=== PATIENT | male | born 1975 | race African-American/Black ===

== ENCOUNTER 2018-06-26 02:51 | Inpatient (IN) ==
[2018-06-26] MEDS ORDERED: ceFAZolin 2 GM Premix Inj 2 GM/50 ML PIGGYBACK IV.SIG ONE (03:02)
[2018-06-26 03:22] LABS: Baso % (Auto) 0.5 % (0.0-2.0); Eos % (Auto) 0.5 % (0.0-4.0); Hematocrit 31.5 % (39.0-51.0); Hemoglobin 10.6 gm/dL (13.0-17.0); Lymph # (Auto) 1.2 th/mm3 (1.0-4.8); Lymph % (Auto) 21.3 % (9.0-44.0); Mean Corpuscular HGB Conc 33.6 % (32.0-36.0); Mean Corpuscular Hemoglobin 31.2 pg (27.0-34.0); Mean Corpuscular Volume 92.9 fL (80.0-100.0); Mean Platelet Volume 7.6 fL (7.0-11.0); Mono # (Auto) 0.7 th/mm3 (0.0-0.9); Mono % (Auto) 13.7 % (0.0-8.0); Neut # (Auto) 3.5 th/mm3 (1.8-7.7); Platelet Count 253 th/mm3 (150-450); Red Blood Count 3.39 mil/mm3 (4.50-5.90); Red Cell Distribution Width 16.7 % (11.6-17.2); White Blood Count 5.5 th/mm3 (4.0-11.0)
[2018-06-26 03:37] LABS: Activated Partial Thrombo Time 25.5 sec (23.4-31.7); INR 1.1 Ratio; Prothrombin Time 11.4 sec (9.8-11.6)
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
[2018-06-26] MEDS ORDERED: Morphine Inj 4 MG/ML Vial IV.PUSH ONE ×2 (03:53→05:27)
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
[2018-06-26] MEDS: Morphine Inj 4 MG/ML Vial ONE ×2 (04:04→04:16)
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
[2018-06-26] MEDS: Pantoprazole Inj 40 MG Vial IV.PUSH SCH (06:37)
[2018-06-26] MEDS: Sod Chloride 0.9% Inj 1,000 ML IV.CONT SCH ×2 (06:37→16:14)
[2018-06-26] MEDS: HYDROmorphone PF Inj 1 MG/ML Ampul IV.PUSH PRN ×6 (06:38→22:59)
[2018-06-26] MEDS ORDERED: ceFAZolin Inj 2,000 MG in Sodium Chlor 0.9% Inj 80 ML IV.SIG SCH (07:00)
[2018-06-26] MEDS: ceFAZolin 2 GM Premix Inj 2 GM/50 ML PIGGYBACK IV.SIG SCH ×2 (07:51→17:40)
[2018-06-26] MEDS: Multivitamin Inj 10 ML, Thiamine Inj 100 MG, Folic Acid Inj 1 MG in Sodium Chlor 0.9% I... IV.SIG SCH (07:56)
[2018-06-26] MEDS ORDERED: Digoxin 250 MCG Tablet PO ONE (18:45)
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
[2018-06-26] MEDS ORDERED: Digoxin 125 MCG Tablet PO ONE (22:30)
[2018-06-26] MEDS ORDERED: Metoprolol Tartrate 25 MG Tablet PO ONE (23:00)
[2018-06-27] MEDS: ceFAZolin 2 GM Premix Inj 2 GM/50 ML PIGGYBACK IV.SIG SCH ×3 (01:20→15:45)
[2018-06-27] MEDS: HYDROmorphone PF Inj 1 MG/ML Ampul IV.PUSH PRN ×7 (01:47→22:12)
[2018-06-27] MEDS: Sod Chloride 0.9% Inj 1,000 ML IV.CONT SCH ×2 (02:40→13:35)
[2018-06-27] MEDS ORDERED: Metoprolol Inj 5 MG/5 ML Vial IV.PUSH ONE (05:35)
[2018-06-27] MEDS ORDERED: Metoprolol Inj 5 MG/5 ML Vial IV.PUSH PRN (05:36)
[2018-06-27] MEDS: Pantoprazole Inj 40 MG Vial IV.PUSH SCH (06:37)
[2018-06-27 07:10] LABS: Hemoglobin 11.5 gm/dL (13.0-17.0); Mean Corpuscular Hemoglobin 30.9 pg (27.0-34.0); Mean Corpuscular Volume 93.7 fL (80.0-100.0); Platelet Count 247 th/mm3 (150-450); Red Blood Count 3.73 mil/mm3 (4.50-5.90); Red Cell Distribution Width 16.7 % (11.6-17.2); White Blood Count 5.3 th/mm3 (4.0-11.0)
[2018-06-27 07:30] LABS: Albumin 1.9 g/dL (3.4-5.0); Anion Gap 7 meq/L (5-15); Aspartate Aminotransferase 71 U/L (15-37); Blood Urea Nitrogen 9 mg/dL (7-18); Calcium 8.2 mg/dL (8.5-10.1); Carbon Dioxide 23.8 meq/L (21.0-32.0); Chloride 105 meq/L (98-107); Glomerular Filtration Rate Greater Than 89 mL/min (>89); Glucose,Random 74 mg/dL (74-106); Potassium 3.7 meq/L (3.5-5.1); Sodium 136 meq/L (136-145)
[2018-06-27 07:31] LABS: Alanine Aminotransferase 36 U/L (12-78)
[2018-06-27 07:33] LABS: Alkaline Phosphatase 147 U/L (45-117); Total Protein 8.5 g/dL (6.4-8.2)
[2018-06-27 08:04] LABS: Magnesium 1.9 mg/dL (1.5-2.5)
[2018-06-27] MEDS: Senna/Docusate Sodium 8.6/50 MG Tablet PO SCH ×2 (08:15→21:13)
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
[2018-06-27] MEDS ORDERED: Digoxin 250 MCG Tablet PO SCH (09:00)
[2018-06-27] MEDS: Digoxin 125 MCG Tablet PO SCH (09:14)
[2018-06-27] MEDS ORDERED: PEG 3350/E-Lyte Soln 4000 ML Bottle PO ONE (09:38)
[2018-06-27 09:40] LABS: Eosinophils 3 % (0-4); Lymphocytes 4 % (9-44); Monocytes 8 % (0-8)
[2018-06-27 09:41] LABS: Ovalocytes 1+; Platelet Estimate Normal (Normal); Platelet Morphology Normal (Normal)
[2018-06-27] MEDS ORDERED: Metoprolol Tartrate 25 MG Tablet PO ONE ×2 (10:14→14:30)
[2018-06-27] MEDS: Sodium Chloride 0.9% 2 ML Flush BID IV.FLUSH SCH ×2 (10:25→21:14)
--- NOTE | 2018-06-27 11:24 | OTSOAPIP ---
TIME SESSION COMPLETED: 11 AM SPOKE WITH RN DEEJAY SHE REQUESTED FOR OCCUPATIONAL THERAPY TO HOLD TODAY. Therapist: Sara Gallardo Signature on file
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
--- NOTE | 2018-06-27 17:48 | ECG ---
Date Performed: 06/27/2018 Time Performed: 07:52:11 PTAGE: 43 years EKG: SINUS TACHYCARDIA WITH FIRST DEGREE AV BLOCK POSSIBLE RIGHT VENTRICULAR CONDUCTION DELAY MO DERATE ST DEPRESSION ABNORMAL ECG NO PREVIOUS TRACING DOCTOR: Justin Arellano Interpretating Date/Time 06/27/2018 17:45:12
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
[2018-06-27] MEDS: Multivitamin Inj 10 ML, Thiamine Inj 100 MG, Folic Acid Inj 1 MG in Sodium Chlor 0.9% I... IV.SIG SCH (18:28)
--- NOTE | 2018-06-27 18:29 | ECHRPT ---
Indication: CHEST PAIN CONCLUSIONS Normal left ventricular size. Wall thickness is measured at the upper limits of normal. The left ventricular systolic function is severely reduced with an estimated ejection fraction in th e range of 30-35%. The left atrial size is mildly dilated. [id number] mitral valve regurgitation. The estimated pulmonary arterial pressure is 30 mmHg. There is trace tricuspid valve regurgitation. BP: / HR: Rhythm: MEASUREMENTS (Male / Female) Normal Values Technical Quality: 2D ECHO LV Diastolic Diameter PLAX 5.4 cm 4.2 - 5.9 / 3.9 - 5.3 cm LV Systolic Diameter PLAX 4.6 cm IVS Diastolic Thickness 1.1 cm 0.6 - 1.0 / 0.6 - 0.9 cm LVPW Diastolic Thickness 1.4 cm 0.6 - 1.0 / 0.6 - 0.9 cm LV Relative Wall Thickness 0.5 RV Internal Dim ED PLAX 3.2 cm LVOT Diameter 2.1 cm Aortic Root Diameter 2.6 cm LA Systolic Diameter LX 4.3 cm 3.0 - 4.0 / 2.7 - 3.8 cm LV Ejection Fraction MOD BP 21.7 % >= 55 % LV Ejection Fraction MOD 4C 22.9 % LV Ejection Fraction 4C AL 23.1 % LV Ejection Fraction MOD 2C 24.6 % LV Ejection Fraction 2C AL 28.1 % M-MODE Aortic Root Diameter MM 3.7 cm LA Systolic Diameter MM 4.2 cm LA Ao Ratio MM 1.1 AV Cusp Separation MM 2.1 cm DOPPLER AV Peak Velocity 117.0 cm/s AV Peak Gradient 5.5 mmHg LVOT Peak Velocity 75.5 cm/s LVOT Peak Gradient 2.3 mmHg AV Area Cont Eq pk 2.2 cm Mitral E Point Velocity 101.0 cm/s LV E' Lateral Velocity 22.3 cm/s Mitral E to LV E' Lateral Ratio 4.5 LV E' Septal Velocity 15.8 cm/s Mitral E to LV E' Septal Ratio 6.4 TR Peak Velocity 224.0 cm/s TR Peak Gradient 20.1 mmHg Right Atrial Pressure 10.0 mmHg Pulmonary Artery Systolic Pressu 30.1 mmHg Right Ventricular Systolic Press 30.1 mmHg PV Peak Velocity 75.0 cm/s PV Peak Gradient 2.3 mmHg FINDINGS LEFT VENTRICLE Normal left ventricular size. Wall thickness is measured at the upper limits of normal. The left ventricular systolic function is severely reduced with an estimated ejection fraction in th e range of 30-35%. RIGHT VENTRICLE Normal right ventricular size and systolic function. LEFT ATRIUM The left atrial size is mildly dilated. RIGHT ATRIUM The right atrial size is normal. ATRIAL SEPTUM Normal atrial septal thickness without atrial level shunting by limited color doppler interrogation. AORTA The aortic root and proximal ascending aorta are normal in size on limited imaging. MITRAL VALVE [id number] mitral valve regurgitation. AORTIC VALVE Trileaflet aortic valve. No aortic valve stenosis or regurgitation. TRICUSPID VALVE The estimated pulmonary arterial pressure is 30 mmHg. There is trace tricuspid valve regurgitation. PULMONARY VALVE No pulmonary valve regurgitation or stenosis. VESSELS The inferior vena cava is normal in size. PERICARDIUM No pericardial effusion. Jaden Molina MD, FACC, FSCAI (Electronically Signed) Final Date:27 June 2018 18:28
[2018-06-27] MEDS: Metoprolol Tartrate 50 MG Tablet PO SCH (21:13)
[2018-06-28] MEDS: ceFAZolin 2 GM Premix Inj 2 GM/50 ML PIGGYBACK IV.SIG SCH (00:07)
[2018-06-28] MEDS ORDERED: Metoprolol Tartrate 25 MG Tablet PO PRN (00:25)
[2018-06-28] MEDS ORDERED: Sodium Chlor 0.9% Inj 500 ML IV.CONT ONE (03:15)
[2018-06-28] MEDS ORDERED: Chlorhexidine Gluconate 2% 1 Pack (2 Cloths) TOPICAL ONE (03:15)
[2018-06-28] MEDS: HYDROmorphone PF Inj 1 MG/ML Ampul IV.PUSH PRN ×3 (04:23→13:46)
[2018-06-28 05:07] LABS: Baso % (Auto) 0.5 % (0.0-2.0); Eos # (Auto) 0.2 th/mm3 (0.0-0.4); Eos % (Auto) 3.9 % (0.0-4.0); Hematocrit 32.1 % (39.0-51.0); Hemoglobin 10.8 gm/dL (13.0-17.0); Lymph # (Auto) 0.6 th/mm3 (1.0-4.8); Lymph % (Auto) 12.6 % (9.0-44.0); Mean Corpuscular HGB Conc 33.8 % (32.0-36.0); Mean Corpuscular Hemoglobin 31.4 pg (27.0-34.0); Mean Corpuscular Volume 92.9 fL (80.0-100.0); Mean Platelet Volume 7.7 fL (7.0-11.0); Mono # (Auto) 0.4 th/mm3 (0.0-0.9); Mono % (Auto) 9.7 % (0.0-8.0); Neut # (Auto) 3.3 th/mm3 (1.8-7.7); Neut % (Auto) 73.3 % (16.0-70.0); Platelet Count 225 th/mm3 (150-450); Red Blood Count 3.46 mil/mm3 (4.50-5.90); White Blood Count 4.4 th/mm3 (4.0-11.0)
[2018-06-28 05:25] LABS: Anion Gap 9 meq/L (5-15); Blood Urea Nitrogen 8 mg/dL (7-18); Calcium 7.8 mg/dL (8.5-10.1); Chloride 104 meq/L (98-107); Glomerular Filtration Rate Greater Than 89 mL/min (>89); Glucose,Random 74 mg/dL (74-106); Potassium 3.4 meq/L (3.5-5.1); Sodium 137 meq/L (136-145)
[2018-06-28] MEDS: Sod Chloride 0.9% Inj 1,000 ML IV.CONT SCH ×2 (08:52→09:11)
[2018-06-28] MEDS: Pantoprazole Inj 40 MG Vial IV.PUSH SCH (08:54)
[2018-06-28] MEDS: Metoprolol Tartrate 50 MG Tablet PO SCH ×2 (09:07→20:17)
[2018-06-28] MEDS: Digoxin 125 MCG Tablet PO SCH (09:07)
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
--- NOTE | 2018-06-28 11:39 | P.PCN ---
Date of procedure: 06/28/18 Pre-op diagnosis: Abnormal colon On imaging Procedure: PROCEDURE PERFORMED Colonoscopy with snare polypectomy and biopsy PROCEDURE: The procedure, risks and benefits were discussed with Patient/POA and informed consent was obtained. Anesthesia sedated Patient with Diprivan. Patient was placed in the left lateral decubitus position. Colonoscopy: The Pentax videoscope was introduced through the rectum and advanced to cecum where the ileocecal valve and appendiceal orifice were identified. Retroflexion was performed in the rectum. Colonic prep was good FINDINGS: Colonic withdrawal time greater than 6 minutes. As the scope was slowly withdrawn colonic mucosa was carefully inspected the patient was noted to have a pedunculated polyp in the mid transverse colon this was excised using hot snare technique and retrieved for further evaluation this was measuring about a centimeter there was significant edema with erythemic patches of the descending colon and sigmoid of unclear significance multiple biopsies were taken from this area for further evaluation also noted were mild scattered diverticulosis retroflexion in the rectum revealed grade 2 internal hemorrhoids rectal examination otherwise unremarkable ESTIMATED BLOOD LOSS: None SPECIMENS REMOVED: Colon biopsies COMPLICATIONS: None IMPRESSION: Colon polyps Diverticulosis Significant edema with erythema of the descending and sigmoid colon probably inflammatory PLAN: Await biopsies Advance diet as tolerated Recommend colonoscopy in 1 year Continue with current supportive care Anesthesia: MAC Surgeon: Jay Brownlee Condition: stable Disposition: floor
[2018-06-28] MEDS ORDERED: Potassium Chloride 10 MEQ ER Capsule PO ONE (12:22)
[2018-06-28] MEDS: Sodium Chloride 0.9% 2 ML Flush BID IV.FLUSH SCH ×2 (13:51→20:18)
[2018-06-28] MEDS: Senna/Docusate Sodium 8.6/50 MG Tablet PO SCH ×2 (13:51→23:41)
[2018-06-28] MEDS: Multivitamin Inj 10 ML, Thiamine Inj 100 MG, Folic Acid Inj 1 MG in Sodium Chlor 0.9% I... IV.SIG SCH (13:51)
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
--- NOTE | 2018-06-28 15:24 | P.PNVS ---
Subjective Subjective/Hospital Course: Patient with left colon mass, partially obstructing, incidental finding. 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 an exophitic mass arising from either the colon or the surrounding area/mesenchymal tumor. Biopsies obtained and awaiting results. Discussed with Dr. Brownlee, GI who stated it was hard to pass the scope through narrowed area, but the mucosa appears mostly intact. Based on the results, will tailor therapy. Objective Vital Signs / I&O: Vital Signs 06/27/18 15:30 06/27/18 16:00 06/27/18 19:03 Temperature 98.3 F 96.9 F L Pulse Rate 109 H 149 H 114 H Respiratory Rate 16 28 H 18 Blood Pressure 133/92 H 166/107 H 142/99 H Pulse Oximetry 99 100 100 06/27/18 20:00 06/27/18 23:30 06/28/18 00:00 Temperature 97.8 F Pulse Rate 124 H Respiratory Rate 18 18 18 Blood Pressure 152/104 H Pulse Oximetry 06/28/18 01:48 06/28/18 04:40 06/28/18 08:00 Temperature 99.6 F 97.8 F Pulse Rate 101 H 110 H 117 H Respiratory Rate 17 18 20 Blood Pressure 132/81 144/92 H 159/95 H Pulse Oximetry 98 95 98 06/28/18 09:00 06/28/18 11:50 06/28/18 12:00 Temperature 98.3 F 98.2 F Pulse Rate 113 H 111 H 103 H Respiratory Rate 18 20 Blood Pressure 151/104 H 164/102 H Pulse Oximetry 97 98 Intake & Output 06/27/18 06/28/18 06/28/18 18:59 06:59 18:59 Intake Total 3100 / 3100 4050 / 4050 1250 / 1250 Output Total 800 / 800 Balance 2300 / 2300 4050 / 4050 1250 / 1250 Weight 92.9 kg Intake: IV 100 / 100 50 / 50 1000 / 1000 NS Inj 1,000 ML @ 100 mls/hr IV 1000 / 1000 .CONT .Q10H [facility] Rx#:[id number] Ancef 2 GM Premix Inj 2 gm In 100 / 100 50 / 50 50 ml @ 100 mls/hr IV.SIG Q8H [facility] Rx#:[id number] Oral 3000 / 3000 4000 / 4000 Anesthesia Amount 250 / 250 Output: Urine 800 / 800 Other: # Voids 5 Date of Last Bowel Movement 06/28/18 # Bowel Movements 3 6 Laboratory Results - last 24 hr 06/28/18 06/28/18 04:51 04:51 WBC 4.4 RBC 3.46 L Hgb 10.8 L Hct 32.1 L MCV 92.9 MCH 31.4 MCHC 33.8 RDW 16.0 Plt Count 225 MPV 7.7 Neut % (Auto) 73.3 H Lymph % (Auto) 12.6 [place] % (Auto) 9.7 H Eos % (Auto) 3.9 Baso % (Auto) 0.5 Neut # (Auto) 3.3 Lymph # (Auto) 0.6 L [place] # (Auto) 0.4 Eos # (Auto) 0.2 Baso # (Auto) 0.0 WBC Differential . Differential Comment Auto diff final Sodium 137 Potassium 3.4 L Chloride 104 Carbon Dioxide 24.0 Anion Gap 9 BUN 8 Creatinine 0.81 Estimated GFR Greater than 89 Random Glucose 74 Calcium 7.8 L
--- NOTE | 2018-06-28 16:26 | P.PNPOD ---
Subjective Interval history: Patient seen at bedside In [facility] Physical Exam Vital signs: Vital Signs 06/27/18 19:03 06/27/18 20:00 06/27/18 23:30 Temperature 96.9 F L 97.8 F Pulse Rate 114 H 124 H Respiratory Rate 18 18 18 Blood Pressure 142/99 H 152/104 H Pulse Oximetry 100 06/28/18 00:00 06/28/18 01:48 06/28/18 04:40 Temperature 99.6 F Pulse Rate 101 H 110 H Respiratory Rate 18 17 18 Blood Pressure 132/81 144/92 H Pulse Oximetry 98 95 06/28/18 08:00 06/28/18 09:00 06/28/18 11:50 Temperature 97.8 F 98.3 F Pulse Rate 117 H 113 H 111 H Respiratory Rate 20 18 Blood Pressure 159/95 H 151/104 H Pulse Oximetry 98 97 06/28/18 12:00 Temperature 98.2 F Pulse Rate 103 H Respiratory Rate 20 Blood Pressure 164/102 H Pulse Oximetry 98 Intake & Output 06/27/18 06/28/18 06/28/18 18:59 06:59 18:59 Intake Total 3100 / 3100 4050 / 4050 1250 / 1250 Output Total 800 / 800 Balance 2300 / 2300 4050 / 4050 1250 / 1250 Weight 92.9 kg Intake: IV 100 / 100 50 / 50 1000 / 1000 NS Inj 1,000 ML @ 100 mls/hr IV 1000 / 1000 .CONT .Q10H [facility] Rx#:[id number] Ancef 2 GM Premix Inj 2 gm In 100 / 100 50 / 50 50 ml @ 100 mls/hr IV.SIG Q8H [facility] Rx#:[id number] Oral 3000 / 3000 4000 / 4000 Anesthesia Amount 250 / 250 Output: Urine 800 / 800 Other: # Voids 5 Date of Last Bowel Movement 06/28/18 # Bowel Movements 3 6 Medications and Allergies Active Medications: Active Medications Hydrocodone Bitart/Acetaminophen ([place] 5/325) 1 tab PO Q4H PRN PRN Reason: Pain 1-5 Clonidine HCl (Catapres) 0.2 mg PO Q6H PRN PRN Reason: sbp > 160 Last Admin: 06/28/18 00:06 Dose: 0.2 mg Digoxin (Lanoxin) 125 mcg PO DAILY [facility] Last Admin: 06/28/18 09:07 Dose: 125 mcg Hydromorphone HCl (Dilaudid Pf Inj) 1 mg IV.PUSH Q3H PRN PRN Reason: Break through pain Stop: 06/28/18 18:00 Last Admin: 06/28/18 13:46 Dose: 1 mg Lactated Ringer's (Lr 1000 Ml Inj) 1,000 mls @ 30 mls/hr IV.CONT .Q24H ONE Stop: 06/29/18 03:14 Last Admin: 06/28/18 13:52 Dose: Not Given Lorazepam (Ativan) 1 mg PO Q2H PRN PRN Reason: prn agiation or alchohol w/d Metoprolol Tartrate (Lopressor) 50 mg PO BID [facility] Last Admin: 06/28/18 09:07 Dose: 50 mg Nicotine (Habitrol 21 Mg Patch.24 Hr) 1 patch T-DERMAL DAILY [facility] Last Admin: 06/28/18 13:51 Dose: Not Given Ondansetron HCl (Zofran Inj) 4 mg IV.PUSH Q6H PRN PRN Reason: NAUSEA OR VOMITING Oxycodone HCl (Roxicodone) 10 mg PO Q4H PRN PRN Reason: Pain 6-10 Last Admin: 06/27/18 23:05 Dose: 10 mg Pantoprazole Sodium (Protonix Inj) 40 mg IV.PUSH Q24H [facility] Last Admin: 06/28/18 08:54 Dose: 40 mg Patch Removal (Remove Old Patch) 1 each T-DERMAL DAILY [facility] Last Admin: 06/28/18 13:50 Dose: 1 each Senna/Docusate Sodium (Mya-Colace) 1 tab PO BID [facility] Last Admin: 06/28/18 13:51 Dose: Not Given Sodium Chloride (Ns Flush) 2 ml IV.FLUSH BID [facility] Last Admin: 06/28/18 13:51 Dose: 2 ml Sodium Chloride (Ns Flush) 2 ml IV.FLUSH PRN PRN PRN Reason: FLUSH AFTER USING IV ACCESS Allergies Allergy/AdvReac Type Severity Reaction Status Date / Time lisinopril Allergy Swelling Verified 06/28/18 10:33 of Lip/Tongue/Throat Home Medications Medication Instructions Recorded Confirmed Type digoxin 2.5 mcg/kg PO DAILY 06/26/18 06/26/18 History metoprolol succinate 25 mg PO DAILY 06/26/18 06/26/18 History Results - Labs CBC & Chem 7: 06/28/18 04:51 06/28/18 04:51 Laboratory Results - last 24 hr 06/28/18 06/28/18 04:51 04:51 WBC 4.4 RBC 3.46 L Hgb 10.8 L Hct 32.1 L MCV 92.9 MCH 31.4 MCHC 33.8 RDW 16.0 Plt Count 225 MPV 7.7 Neut % (Auto) 73.3 H Lymph % (Auto) 12.6 [place] % (Auto) 9.7 H Eos % (Auto) 3.9 Baso % (Auto) 0.5 Neut # (Auto) 3.3 Lymph # (Auto) 0.6 L [place] # (Auto) 0.4 Eos # (Auto) 0.2 Baso # (Auto) 0.0 WBC Differential . Differential Comment Auto diff final Sodium 137 Potassium 3.4 L Chloride 104 Carbon Dioxide 24.0 Anion Gap 9 BUN 8 Creatinine 0.81 Estimated GFR Greater than 89 Random Glucose 74 Calcium 7.8 L Assessment and Plan - Assessment (1) Phalanx fracture, foot Code(s): S92.919A - Unspecified fracture of unspecified toe(s), initial encounter for closed fracture Status: Acute - Plan Patient confirms that he does not want any surgical intervention. discussed angulation of the fracture and arthritis. Continue with CAM F/U with Dr Bertrand in 3 weeks.
[2018-06-28] MEDS ORDERED: Gadobutrol PF 10 MMOL/10 ML Vial (for RAD) IV.SIG ONE (19:07)
--- NOTE | 2018-06-28 19:43 | MR ---
EXAM DATE: 06/28/2018 7:22 PM EST AGE/SEX: 43 years / Male INDICATIONS: Liver mass. CLINICAL DATA: This is the patient's initial encounter. Patient reports that signs and symptoms have been present for 2 days and indicates a pain score of 3/10. MEDICAL/SURGICAL HISTORY: Hypertension. . Right leg fracture/sx. COMPARISON: [facility] – [place], CT ABDOMEN & PELVIS W CONTRAST, 06/26/2018. . TECHNIQUE: Multiplanar, multisequence images of the abdomen were obtained prior to and following adm inistration of 10 ml Gadavist (gadobutrol) contrast as a single exam dose with dynamic multiphase oscar hnique. FINDINGS: There is again diffuse prominence of the pancreatic duct measuring approximately 7 mm in diameter hea d, body, and tail. There is also prominence of the proximal common duct measuring approximately 10 mm in diameter. The mid common duct measures 9 mm in diameter. The distal common duct at the level the pancreatic head measures 4 mm. A discrete mass is not seen. There is mild ill-defined heterogeneity i n the uncinate process of the pancreas measuring approximately 2 cm. No filling defects are seen with in the pancreatic duct or common duct. The patient is status post cholecystectomy. No enlarged lymph nodes. Liver, spleen, adrenal glands, and kidneys are within normal limits. Aortic diameter within normal limits. Marked circumventive wall thickening of the proximal sigmoid colon, distal descending colon is again seen. CONCLUSION: 1. Diffuse pancreatic duct dilatation again seen. There is mild heterogeneity of the uncinate proces s of the pancreas but no discrete mass identified. No calculi identified. Further evaluation with end oscopic ultrasound may be beneficial. 2. Mild prominence of the proximal common duct. However this is within normal limits for a postchole cystectomy patient. 3. Marked colonic wall thickening at the distal descending colon/proximal sigmoid colon again suspic ious for malignancy. Electronically signed by: Miah Mayorga MD 06/28/2018 7:42 PM EST
[2018-06-28] MEDS: LORazepam 1 MG Tablet PO PRN (20:18)
[2018-06-29] MEDS: LORazepam 1 MG Tablet PO PRN ×5 (03:21→20:48)
[2018-06-29] MEDS: Pantoprazole Inj 40 MG Vial IV.PUSH SCH (07:48)
[2018-06-29] MEDS: Metoprolol Tartrate 50 MG Tablet PO SCH ×2 (09:08→20:44)
[2018-06-29] MEDS: Senna/Docusate Sodium 8.6/50 MG Tablet PO SCH ×2 (09:09→20:44)
[2018-06-29] MEDS: Digoxin 125 MCG Tablet PO SCH (09:09)
[2018-06-29] MEDS: Sodium Chloride 0.9% 2 ML Flush BID IV.FLUSH SCH ×2 (09:13→20:46)
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
--- NOTE | 2018-06-29 12:06 | P.PNGI ---
Subjective Interval history: Patient sitting up at bedside Denies abdominal pain Denies any complaints Tolerating p.o. intake Physical Exam Vital signs: Vital Signs 06/28/18 12:00 06/28/18 19:40 06/28/18 20:06 Temperature 98.2 F 98.5 F Pulse Rate 103 H 117 H 123 H Respiratory Rate 20 19 Blood Pressure 164/102 H 159/108 H Pulse Oximetry 98 100 06/28/18 23:30 06/29/18 00:02 06/29/18 03:45 Temperature 97.9 F 97.4 F L Pulse Rate 95 H 125 H 123 H Respiratory Rate 19 19 Blood Pressure 171/116 H 133/97 H Pulse Oximetry 99 99 06/29/18 08:00 Temperature 97.8 F Pulse Rate 101 H Respiratory Rate 18 Blood Pressure 173/119 H Pulse Oximetry 98 Intake & Output 06/28/18 06/29/18 06/29/18 18:59 06:59 18:59 Intake Total 1250 / 1250 900 / 900 Balance 1250 / 1250 900 / 900 Weight 92.9 kg Intake: IV 1000 / 1000 NS Inj 1,000 ML @ 100 mls/hr IV 1000 / 1000 .CONT .Q10H ARYAN Rx#:[id number] Oral 900 / 900 Anesthesia Amount 250 / 250 Other: # Voids 3 Date of Last Bowel Movement 06/28/18 06/28/18 - Constitutional no acute distress - Routine HEENT Exam Head: Present: normocephalic - Routine Respiratory Exam Present: CTA bilaterally. Absent: accessory muscle use - Routine Abdominal Exam Present: soft, normoactive bowel sounds. Absent: guarding, firm - Routine Extremities Exam Absent: edema - Routine Skin Exam Present: dry, warm - Routine Neurological Exam Present: alert, oriented X3 Results - Labs CBC & Chem 7: 06/28/18 04:51 06/28/18 04:51 - Imaging Impressions Abdomen MRI 06/28/18 00:00 CONCLUSION: 1. Diffuse pancreatic duct dilatation again seen. There is mild heterogeneity of the uncinate process of the pancreas but no discrete mass identified. No calculi identified. Further evaluation with endoscopic ultrasound may be beneficial. 2. Mild prominence of the proximal common duct. However this is within normal limits for a postcholecystectomy patient. 3. Marked colonic wall thickening at the distal descending colon/proximal sigmoid colon again suspicious for malignancy. Assessment and Plan - Plan Colonic mass Patient endorses 3-4-week onset of occasional constipation for which he used [id number] laxative without improvement. Patient reports feeling of incomplete emptying after bowel movements and denies any noted bleeding. 06/26/2018 CT abdomen and pelvis revealed the following findings: 1. Questionable mild inflammatory change in the left side of the mesentery in the lower abdomen and upper left side of the pelvis. There is a masslike area involving the portion of the descending colon of concern for tumor. 2. Status post cholecystectomy. There is prominence of the common bile duct which can be a normal postsurgical finding. The pancreatic duct however is dilated measuring 6 mm without distinct mass. This is of concern for possible distal obstruction possible tumor. 06/29/2018 Patient sitting up at bedside denies abdominal pain nausea or vomiting. Denies any noted bleeding, tolerating p.o. intake well 06/28/2018 EGD revealed the following findings-- Colon polyps, Diverticulosis Significant edema with erythema of the descending and sigmoid colon probably inflammatory Colonic biopsies obtained Discussed findings and impressions with patient, patient verbalized understanding Plan -Await biopsies -Diet as tolerated -Recommend colonoscopy in 1 year -EUS as outpatient -Ca19-9, Lipase -Supportive care -Bowel regimen -Patient agrees to follow-up with GI post discharge for biopsy results and general follow-up -Further recommendations to follow based on findings This patient has been seen by myself and Dr. Anderson and this note is written on his behalf - Attending Attestation Dr. Anderson
[2018-06-30] MEDS: LORazepam 1 MG Tablet PO PRN ×2 (03:19→08:43)
[2018-06-30] MEDS: Pantoprazole Inj 40 MG Vial IV.PUSH SCH (05:37)
[2018-06-30] MEDS: Sodium Chloride 0.9% 2 ML Flush PRN IV.FLUSH (05:38)
[2018-06-30 07:55] LABS: Baso % (Auto) 0.4 % (0.0-2.0); Eos # (Auto) 0.2 th/mm3 (0.0-0.4); Eos % (Auto) 3.2 % (0.0-4.0); Hematocrit 30.7 % (39.0-51.0); Hemoglobin 10.3 gm/dL (13.0-17.0); Lymph # (Auto) 0.6 th/mm3 (1.0-4.8); Lymph % (Auto) 11.8 % (9.0-44.0); Mean Corpuscular HGB Conc 33.7 % (32.0-36.0); Mean Corpuscular Hemoglobin 31.1 pg (27.0-34.0); Mean Corpuscular Volume 92.3 fL (80.0-100.0); Mean Platelet Volume 7.6 fL (7.0-11.0); Mono # (Auto) 0.5 th/mm3 (0.0-0.9); Mono % (Auto) 9.6 % (0.0-8.0); Neut # (Auto) 3.8 th/mm3 (1.8-7.7); Platelet Count 286 th/mm3 (150-450); Red Blood Count 3.32 mil/mm3 (4.50-5.90)
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
[2018-06-30 08:32] LABS: Anion Gap 8 meq/L (5-15); Blood Urea Nitrogen 4 mg/dL (7-18); Calcium 7.8 mg/dL (8.5-10.1); Carbon Dioxide 25.2 meq/L (21.0-32.0); Chloride 104 meq/L (98-107); Glomerular Filtration Rate Greater Than 89 mL/min (>89); Glucose,Random 86 mg/dL (74-106); Potassium 3.3 meq/L (3.5-5.1); Sodium 137 meq/L (136-145)
[2018-06-30] MEDS: Metoprolol Tartrate 50 MG Tablet PO SCH ×2 (08:41→23:28)
[2018-06-30] MEDS: Senna/Docusate Sodium 8.6/50 MG Tablet PO SCH ×2 (08:41→23:29)
[2018-06-30] MEDS: Digoxin 125 MCG Tablet PO SCH (08:42)
[2018-06-30] MEDS: Enoxaparin Inj 40 MG/0.4 ML Syringe SQ SCH (08:43)
[2018-06-30] MEDS: Sodium Chloride 0.9% 2 ML Flush BID IV.FLUSH SCH ×2 (08:43→23:28)
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
[2018-06-30] MEDS ORDERED: Potassium Chloride 10 MEQ ER Capsule PO ONE (13:22)
--- NOTE | 2018-06-30 15:40 | P.PNGI ---
Subjective Interval history: Patient sitting up in bed Patient denies abdominal pain nausea vomiting Physical Exam Vital signs: Vital Signs 06/29/18 16:00 06/29/18 19:00 06/29/18 20:00 Temperature 98.1 F 97.7 F Pulse Rate 125 H 140 H 140 H Respiratory Rate 18 18 Blood Pressure 140/101 H 143/99 H Pulse Oximetry 98 97 06/29/18 23:11 06/30/18 00:00 06/30/18 03:51 Temperature 98.1 F 98.2 F Pulse Rate 111 H 109 H 126 H Respiratory Rate 18 18 Blood Pressure 137/95 H 131/86 Pulse Oximetry 99 98 06/30/18 04:00 06/30/18 07:53 06/30/18 08:00 Temperature 98.5 F Pulse Rate 120 H 112 H Respiratory Rate 18 18 Blood Pressure 126/25 L Pulse Oximetry 95 06/30/18 12:00 06/30/18 12:48 06/30/18 13:37 Temperature 98.2 F Pulse Rate 109 H Respiratory Rate 18 20 20 Blood Pressure 128/78 Pulse Oximetry 96 Intake & Output 06/29/18 06/30/18 06/30/18 18:59 06:59 18:59 Intake Total 480 / 480 480 / 480 Balance 480 / 480 480 / 480 Weight 92.9 kg Intake: Oral 480 / 480 480 / 480 Other: # Voids 3 5 Date of Last Bowel Movement 06/28/18 06/29/18 06/29/18 # Bowel Movements 3 1 - Constitutional no acute distress - Routine HEENT Exam Head: Present: normocephalic - Routine Respiratory Exam Present: CTA bilaterally. Absent: accessory muscle use - Routine Cardiovascular Exam Present: S1, S2 - Routine Abdominal Exam Present: soft, normoactive bowel sounds. Absent: tenderness, distended, guarding, firm - Routine Skin Exam Present: dry, warm - Routine Neurological Exam Present: alert, oriented X3 Results - Labs CBC & Chem 7: 06/30/18 07:01 06/30/18 07:01 Laboratory Results - last 24 hr 06/29/18 06/29/18 06/30/18 18:49 18:49 07:01 WBC 5.0 RBC 3.32 L Hgb 10.3 L Hct 30.7 L MCV 92.3 MCH 31.1 MCHC 33.7 RDW 16.0 Plt Count 286 MPV 7.6 Neut % (Auto) 75.0 H Lymph % (Auto) 11.8 [place] % (Auto) 9.6 H Eos % (Auto) 3.2 Baso % (Auto) 0.4 Neut # (Auto) 3.8 Lymph # (Auto) 0.6 L [place] # (Auto) 0.5 Eos # (Auto) 0.2 Baso # (Auto) 0.0 WBC Differential . Differential Comment Auto diff final Sodium Potassium Chloride Carbon Dioxide Anion Gap BUN Creatinine Estimated GFR Random Glucose Calcium Lipase 89 CA 19-9 Antigen 55.7 H 06/30/18 07:01 WBC RBC Hgb Hct MCV MCH MCHC RDW Plt Count MPV Neut % (Auto) Lymph % (Auto) [place] % (Auto) Eos % (Auto) Baso % (Auto) Neut # (Auto) Lymph # (Auto) [place] # (Auto) Eos # (Auto) Baso # (Auto) WBC Differential Differential Comment Sodium 137 Potassium 3.3 L Chloride 104 Carbon Dioxide 25.2 Anion Gap 8 BUN 4 L Creatinine 0.73 Estimated GFR Greater than 89 Random Glucose 86 Calcium 7.8 L Lipase CA 19-9 Antigen Assessment and Plan - Plan Colonic mass Patient endorses 3-4-week onset of occasional constipation for which he used [id number] laxative without improvement. Patient reports feeling of incomplete emptying after bowel movements and denies any noted bleeding. 06/26/2018 CT abdomen and pelvis revealed the following findings: 1. Questionable mild inflammatory change in the left side of the mesentery in the lower abdomen and upper left side of the pelvis. There is a masslike area involving the portion of the descending colon of concern for tumor. 2. Status post cholecystectomy. There is prominence of the common bile duct which can be a normal postsurgical finding. The pancreatic duct however is dilated measuring 6 mm without distinct mass. This is of concern for possible distal obstruction possible tumor. 06/29/2018 Patient sitting up at bedside denies abdominal pain nausea or vomiting. Denies any noted bleeding, tolerating p.o. intake well 06/28/2018 EGD revealed the following findings-- Colon polyps, Diverticulosis Significant edema with erythema of the descending and sigmoid colon probably inflammatory Colonic biopsies obtained Discussed findings and impressions with patient, patient verbalized understanding 06/30/2018 Patient sitting up in bed denies abdominal pain nausea vomiting Hemoglobin 10.3 hematocrit 30.7 platelet count 286 Alpha-fetoprotein pending CEA 4.8 CA 199 antigen 55.7 lipase 89 06/28/2018 abdominal MRI revealed the following findings : 1. Diffuse pancreatic duct dilatation again seen. There is mild heterogeneity of the uncinate process of the pancreas but no discrete mass identified. No calculi identified. Further evaluation with endoscopic ultrasound may be beneficial. 2. Mild prominence of the proximal common duct. However this is within normal limits for a postcholecystectomy patient. 3. Marked colonic wall thickening at the distal descending colon/proximal sigmoid colon again suspicious for malignancy. Colonic biopsies-pathology pending Plan -Await biopsies -Diet regular -EUS as outpatient- Ca 19-9 elevated -Supportive care -Bowel regimen -Patient agrees to follow-up with GI post discharge for biopsy results and general follow-up -Further recommendations to follow based on findings This patient has been seen by myself and Dr. Anderson and this note is written on his behalf - Attending Attestation Dr. Anderson
--- NOTE | 2018-06-30 16:08 | ECG ---
Date Performed: 06/30/2018 Time Performed: 09:08:49 PTAGE: 43 years EKG: SINUS TACHYCARDIA ABNORMAL RHYTHM ECG PREVIOUS TRACING : 06/27/2018 07.52 Compared to previous tracing, slight right ventricular cond uction delay is still present. Otherwise no significant serial change DOCTOR: Rahul Best Interpretating Date/Time 06/30/2018 16:08:12
[2018-06-30] MEDS ORDERED: Sod Chloride 0.9% Inj 1,000 ML IV.SIG ONE (22:00)
[2018-07-01 04:21] LABS: Baso % (Auto) 0.3 % (0.0-2.0); Eos # (Auto) 0.1 th/mm3 (0.0-0.4); Eos % (Auto) 2.7 % (0.0-4.0); Hematocrit 32.6 % (39.0-51.0); Hemoglobin 11.1 gm/dL (13.0-17.0); Lymph # (Auto) 0.6 th/mm3 (1.0-4.8); Lymph % (Auto) 11.2 % (9.0-44.0); Mean Corpuscular HGB Conc 34.1 % (32.0-36.0); Mean Corpuscular Hemoglobin 31.2 pg (27.0-34.0); Mean Corpuscular Volume 91.5 fL (80.0-100.0); Mean Platelet Volume 7.6 fL (7.0-11.0); Mono # (Auto) 0.5 th/mm3 (0.0-0.9); Mono % (Auto) 8.7 % (0.0-8.0); Neut # (Auto) 4.3 th/mm3 (1.8-7.7); Neut % (Auto) 77.1 % (16.0-70.0); Platelet Count 328 th/mm3 (150-450); Red Blood Count 3.56 mil/mm3 (4.50-5.90); Red Cell Distribution Width 16.4 % (11.6-17.2); White Blood Count 5.6 th/mm3 (4.0-11.0)
[2018-07-01 04:41] LABS: Anion Gap 6 meq/L (5-15); Aspartate Aminotransferase 65 U/L (15-37); Blood Urea Nitrogen 6 mg/dL (7-18); Carbon Dioxide 28.3 meq/L (21.0-32.0); Chloride 106 meq/L (98-107); Glomerular Filtration Rate Greater Than 89 mL/min (>89); Glucose,Random 69 mg/dL (74-106); Potassium 3.7 meq/L (3.5-5.1); Sodium 140 meq/L (136-145)
[2018-07-01 04:42] LABS: Alanine Aminotransferase 30 U/L (12-78)
[2018-07-01 04:45] LABS: Alkaline Phosphatase 144 U/L (45-117); Total Protein 8.6 g/dL (6.4-8.2)
[2018-07-01] MEDS: Pantoprazole Inj 40 MG Vial IV.PUSH SCH (05:12)
[2018-07-01] MEDS: Sodium Chloride 0.9% 2 ML Flush PRN IV.FLUSH (05:12)
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
[2018-07-01] MEDS: Digoxin 125 MCG Tablet PO SCH (09:21)
[2018-07-01] MEDS: Metoprolol Tartrate 50 MG Tablet PO SCH ×2 (09:21→21:05)
[2018-07-01] MEDS: Senna/Docusate Sodium 8.6/50 MG Tablet PO SCH ×2 (09:24→21:04)
[2018-07-01] MEDS: Enoxaparin Inj 40 MG/0.4 ML Syringe SQ SCH ×2 (09:24→15:15)
[2018-07-01] MEDS: Sodium Chloride 0.9% 2 ML Flush BID IV.FLUSH SCH ×2 (09:26→21:05)
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
--- NOTE | 2018-07-01 12:05 | CT ---
EXAM DATE: 07/01/2018 11:39 AM EST AGE/SEX: 43 years / Male INDICATIONS: Mass. COMPARISON: [facility] – [place], CT ABDOMEN & PELVIS W CONTRAST, 06/26/2018. . FINDINGS: Left colon/mesenteric mass. CONCLUSION: We are awaiting biopsy results from colonoscopy. If these are inconclusive, we will proceed with perc utaneous biopsy. Rectal contrast administration will be required to perform safe percutaneous biopsy to avoid compromising the colonic lumen Electronically signed by: Xavi Heredia MD 07/01/2018 12:03 PM EST
[2018-07-01] MEDS ORDERED: Diatrizoate Meglum/Diatrizoate Sod Liq 9 ML UDC PO ONE (16:00)
[2018-07-02] MEDS ORDERED: Chlorhexidine Gluconate 2% 1 Pack (2 Cloths) TOPICAL ONE (04:37)
[2018-07-02] MEDS ORDERED: Metoprolol Tartrate 25 MG Tablet PO ONE (04:37)
[2018-07-02] MEDS ORDERED: Sodium Chlor 0.9% Inj 500 ML IV.SIG SCH (05:00)
[2018-07-02] MEDS: Pantoprazole Inj 40 MG Vial IV.PUSH SCH (05:08)
[2018-07-02] MEDS: Metoprolol Tartrate 50 MG Tablet PO SCH (09:06)
[2018-07-02] MEDS: Senna/Docusate Sodium 8.6/50 MG Tablet PO SCH (09:06)
[2018-07-02] MEDS: Enoxaparin Inj 40 MG/0.4 ML Syringe SQ SCH (09:06)
[2018-07-02] MEDS: Sodium Chloride 0.9% 2 ML Flush BID IV.FLUSH SCH (09:06)
[2018-07-02] MEDS: Digoxin 125 MCG Tablet PO SCH (09:06)
[2018-07-02] MEDS ORDERED: fentaNYL Citrate Inj 250 MCG/5 ML Ampul ONE (09:16)
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
== END 2018-07-02 17:08 | disposition home or self-care (01) ==
LOC: NEPI 02:51 → NEDA 02:51 → EDBD 05:26 → OBSVTOIN 05:26 → MERGE 05:58 → NEDA 08:14 → N06 08:28 → N03 06-27 02:59 → N06 06-27 18:12
PROVIDERS: ADMIT Surgery; ATTEND Surgery
PROC: COLONOS (2018-06-28 10:43)